=== PATIENT | male | born 1990 | race Caucasian/White ===

== ENCOUNTER 2019-08-26 17:36 | Emergency (ER) | payer SELFPAY ==
[2019-08-26] MEDS ORDERED: LIDOCAINE 1% 20 ML MDV ONE (18:22)
[2019-08-26] MEDS ORDERED: TETANUS & DIPHTHERIA TOX,ADULT 0.5 ML VIAL ONE (18:23)
--- NOTE | 2019-08-26 18:50 | RAD REPORT ---
EXAM DESCRIPTION: RAD -Hand Left 3 View - 08/26/2019 6:38 pm CLINICAL HISTORY: Left hand pain status post injury FINDINGS: No fracture or dislocation is seen. A radiopaque foreign body not seen
--- NOTE | 2019-08-26 20:06 | ER ---
Nurse's Notes [facility] Name: Eulalio Krishnan Age: 28 yrs Sex: Male : 1990 Arrival Date: 08/26/2019 Time: 17:39 Bed 20 Private MD: Diagnosis: Laceration without foreign body of left hand Presentation: 08/25 17:49 Chief complaint: Patient states: Cut L hand with a chainsaw about 45 minutes ago. ca1 Coronavirus screen: The patient has NOT traveled to [place] in the past 14 days. The patient has NOT had contact with known and/or suspected case of Coronavirus. Ebola Screen: Patient negative for fever greater than or equal to 101.5 degrees Fahrenheit, and additional compatible Ebola Virus Disease symptoms Patient denies exposure to infectious person. Patient denies travel to an Ebola-affected area in the 21 days before illness onset. No symptoms or risks identified at this time. Initial Sepsis Screen: Does the patient meet any 2 criteria? No. Patient's initial sepsis screen is negative. Does the patient have a suspected source of infection? No. Patient's initial sepsis screen is negative. Risk Assessment: Do you want to hurt yourself or someone else? Patient reports no desire to harm self or others. Onset of symptoms was August 26, 2019. 17:49 Method Of Arrival: Ambulatory ca1 17:49 Acuity: MIGUEL A 4 ca1 19:13 Complicating Factors: chainsaw cut. mg2 Historical: - Allergies: 17:52 No Known Allergies; ca1 - Home Meds: 17:52 None [Active]; ca1 - PMHx: 17:52 None; ca1 - PSHx: 17:52 None; ca1 - Immunization history:: Adult Immunizations not up to date, Last tetanus immunization: < 5 years ago Flu vaccine is not up to date. - Social history:: Smoking status: Patient reports the use of cigarette tobacco products, smokes one pack cigarettes per day. Screenin:12 Abuse screen: Denies threats or abuse. Denies injuries from another. Nutritional mg2 screening: No deficits noted. Tuberculosis screening: No symptoms or risk factors identified. Fall Risk None identified. Assessment: 19:11 General: Appears in no apparent distress. comfortable, Behavior is calm, cooperative. mg2 Pain: Complains of pain in left hand. Neuro: Level of Consciousness is awake, alert, obeys commands, Oriented to person, place, time, situation. Cardiovascular: Capillary refill < 3 seconds Patient's skin is warm and dry. Respiratory: Airway is patent Respiratory effort is even, unlabored, Respiratory pattern is regular, symmetrical. GI: No signs and/or symptoms were reported involving the gastrointestinal system. : No deficits noted. EENT: No deficits noted. Derm: Wound noted left hand Wound is 2 inches long. Musculoskeletal: Circulation, motion, and sensation intact. Capillary refill < 3 seconds. Injury Description: Laceration. 19:15 Injury Description: Laceration sustained to left hand is clean, 2.6 to 7.5 cm long, not wh bleeding. 19:45 Reassessment: Patient appears in no apparent distress at this time. Patient and/or wh family updated on plan of care and expected duration. Pain level reassessed. Patient is alert, oriented x 3, equal unlabored respirations, skin warm/dry/pink. Md at bedside doing procedure. Vital Signs: 17:49 BP 116 / 74; Pulse 101; Resp 16 S; Temp 98.1(O); Pulse Ox 99% on R/A; Weight 61.23 kg ca1 (R); Height 5 ft. 8 in. (172.72 cm) (R); Pain 6/10; 19:45 BP 126 / 70; Pulse 66; Resp 18; Pulse Ox 99% on R/A; wh 17:49 Body Mass Index 20.53 (61.23 kg, 172.72 cm) ca1 ED Course: 17:39 Patient arrived in ED. mr 17:51 Triage completed. ca1 17:52 Arm band placed on right wrist. Bandage applied. ca1 17:54 Phuc Lewis PA is PHCP. cp 17:54 Mohinder Warren MD is Attending Physician. cp 17:56 Satya Davey, CONSUELO is Primary Nurse. mg2 18:38 XRAY Hand LEFT 3 View In Process Unspecified. EDMS 19:13 Patient has correct armband on for positive identification. Door closed. mg2 19:45 Assist provider with laceration repair on left hand that was between 2.6 to 7.5 cm wh using sutures. Set up tray. Performed by Phuc HICKS Dressed with band aid, spica splint Patient tolerated well. Patient did not have IV access during this emergency room visit. 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 Exp: mg2 07/10/2021. Lot #: [id number]. } Route: IM; Site: right deltoid; 20:23 Follow up: Response: No adverse reaction 19:42 Drug: Lidocaine-Epinephrine -1%: (1:100,000) 10 ml {Note: Administered by Phuc Lewis.} Volume: 20 ml; Route: Infiltration; Outcome: 20:05 Discharge ordered by . espinoza 20:25 Discharged to home ambulatory, with family. 20:25 Condition: stable 20:25 Discharge instructions given to patient, family, Instructed on discharge instructions, follow up and referral plans. medication usage, wound care, Demonstrated understanding of instructions, follow-up care, medications, wound care, Prescriptions given X 2. 20:34 Patient left the ED. Signatures: Dispatcher [employer] EDWV GeorgeZhane mr Phuc Lewis PA PA cp Habalo, Winsy Satya Davey RN RN mg2 Dotty Hutchinson RN RN ca1
--- NOTE | 2019-08-26 20:06 | EDPHYS ---
Physician Documentation [facility] Name: Eulalio Krishnan Age: 28 yrs Sex: Male : 1990 Arrival Date: 08/26/2019 Time: 17:39 Bed 20 Private MD: ED Physician Mohinder Warren HPI: 08/25 18:20 This 28 yrs old Male presents to ER via Ambulatory with complaints of cp Laceration To Hand. 18:20 The patient has a laceration occurred at home, and using chainsaw. The laceration(s) cp is(are) located on the hyperthenar eminence of left hand. Onset: The symptoms/episode began/occurred just prior to arrival. Associated signs and symptoms: Pertinent negatives: heavy bleeding, numbness distal to injury. Historical: - Allergies: 17:52 No Known Allergies; ca1 - Home Meds: 17:52 None [Active]; ca1 - PMHx: 17:52 None; ca1 - PSHx: 17:52 None; ca1 - Immunization history:: Adult Immunizations not up to date, Last tetanus immunization: < 5 years ago Flu vaccine is not up to date. - Social history:: Smoking status: Patient reports the use of cigarette tobacco products, smokes one pack cigarettes per day. ROS: 18:25 Constitutional: Negative for fever, poor PO intake. cp 18:25 Eyes: Negative for injury, pain, redness, and discharge. cp 18:25 ENT: Negative for ear pain, sore throat. 18:25 Cardiovascular: Negative for chest pain. 18:25 Respiratory: Negative for cough, shortness of breath, wheezing. 18:25 Abdomen/GI: Negative for abdominal pain, vomiting, diarrhea, constipation. 18:25 Skin: Positive for laceration(s), of the hyperthenar eminence of left hand. 18:25 Neuro: Negative for numbness, tingling. 18:25 All other systems are negative. Exam: 18:35 Constitutional: The patient appears in no acute distress, alert, awake, well developed, cp well nourished. 18:35 Head/Face: Normocephalic, atraumatic. cp 18:35 Eyes: Periorbital structures: appear normal, Conjunctiva: normal, Lids and lashes: appear normal, bilaterally. 18:35 ENT: External ear(s): are unremarkable, Nose: is normal, Mouth: is normal. 18:35 Chest/axilla: Inspection: normal. 18:35 Cardiovascular: Rate: tachycardic. 18:35 Respiratory: the patient does not display signs of respiratory distress, Respirations: normal. 18:35 Abdomen/GI: Inspection: abdomen appears normal. 18:35 Musculoskeletal/extremity: Extremities: grossly normal except: noted in the hyperthenar eminence of left hand: laceration, ROM: limited active range of motion, in the left hand, Circulation is intact in all extremities. Sensation intact. Vital Signs: 17:49 BP 116 / 74; Pulse 101; Resp 16 S; Temp 98.1(O); Pulse Ox 99% on R/A; Weight 61.23 kg ca1 (R); Height 5 ft. 8 in. (172.72 cm) (R); Pain 6/10; 19:45 BP 126 / 70; Pulse 66; Resp 18; Pulse Ox 99% on R/A; wh 17:49 Body Mass Index 20.53 (61.23 kg, 172.72 cm) ca1 Laceration: 19:51 Wound Repair of 4cm ( 1.6in ) subcutaneous laceration to hyperthenar eminence of left cp hand. Linear shaped.. Distal neuro/vascular/tendon intact. Anesthesia: Wound infiltrated with 5 mls of Lido/Marcaine. Wound prep: Moderate cleansing by nurse. Skin closed with 6 4-0 Prolene using simple sutures and sterile technique. Dressed with Bacitracin, 4x4's. Patient tolerated well. MDM: 17:57 Patient medically screened. cp 18:35 Differential diagnosis: superficial laceration, tendon injury, vascular injury, open cp fracture. 20:04 Data reviewed: vital signs, nurses notes, radiologic studies, plain films. cp 20:04 Test interpretation: by ED physician or midlevel provider: plain radiologic studies, cp xrays left hand negative for fracture. Counseling: I had a detailed discussion with the patient and/or guardian regarding: the historical points, exam findings, and any diagnostic results supporting the discharge/admit diagnosis, radiology results, the need for outpatient follow up, a family practitioner, to return to the emergency department if symptoms worsen or persist or if there are any questions or concerns that arise at home. Response to treatment: the patient's symptoms have markedly improved after treatment, and as a result, I will discharge patient. 08/25 18:15 Order name: XRAY Hand LEFT 3 View; Complete Time: 19:12 cp 08/25 19:13 Interpretation: Report reviewed. 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 Exp: mg2 07/10/2021. Lot #: [id number]. } Route: IM; Site: right deltoid; 20:23 Follow up: Response: No adverse reaction 19:42 Drug: Lidocaine-Epinephrine -1%: (1:100,000) 10 ml {Note: Administered by Phuc Lewis.} Volume: 20 ml; Route: Infiltration; Disposition: 08/26 06:22 Co-signature as Attending Physician, Mohinder Warren MD I agree with the assessment and tw4 plan of care. Disposition: 08/26/19 20:05 Discharged to Home. Impression: Laceration without foreign body of left hand. - Condition is Stable. - Discharge Instructions: Laceration Care, Adult. - Prescriptions for Ibuprofen 800 mg Oral Tablet - take 1 tablet by ORAL route every 8 hours As needed take with food; 30 tablet. Keflex 500 mg Oral Capsule - take 1 capsule by ORAL route every 8 hours for 10 days; 30 capsule. - Medication Reconciliation Form, Thank You Letter, Antibiotic Education, Prescription Opioid Use form. - Follow up: Private Physician; When: 7 - 10 days; Reason: Staple/Suture removal. - Problem is new. - Symptoms have improved. Signatures: Dispatcher [employer] EDKS Phuc Lewis PA PA cp Habalo, Winsy wh Wadley, Terrence, MD MD tw4 Satya Davey RN RN mg2 Acob, Dotty, RN RN ca1 Corrections: (The following items were deleted from the chart) 08/25 20:34 20:05 08/26/2019 20:05 Discharged to Home. Impression: Laceration without foreign body wh of left hand. Condition is Stable. Forms are Medication Reconciliation Form, Thank You Letter, Antibiotic Education, Prescription Opioid Use. Follow up: Private Physician; When: 7 - 10 days; Reason: Staple/Suture removal. Problem is new. Symptoms have improved. cp
== END 2019-08-26 20:34 | disposition home or self-care (01) ==
LOC: ER 17:36
PROC: 0JQK0ZZ Repair Left Hand Subcutaneous Tissue and Fascia, Open Approach (ICD-10-PCS; principal; 2019-08-26)
DX: S61.412A Laceration without foreign body of left hand, initial encounter (principal); W29.3XXA Contact with powered garden and outdoor hand tools and machinery, initial encounter; Y93.9 Activity, unspecified; Y92.009 Unspecified place in unspecified non-institutional (private) residence as the place of occurrence of the external cause; Z23 Encounter for immunization; F17.210 Nicotine dependence, cigarettes, uncomplicated
CPT/HCPCS: 90471; 90714; 99284

== ENCOUNTER 2019-09-07 13:31 | Emergency (ER) | payer SELFPAY ==
--- NOTE | 2019-09-07 13:42 | EDPHYS ---
Physician Documentation [facility] Name: Eulalio Krishnan Age: 28 yrs Sex: Male : 1990 Arrival Date: 09/07/2019 Time: 13:33 Bed 20 Private MD: Phuc Robert HPI: 09/06 13:39 This 28 yrs old Male presents to ER via Unassigned with complaints of Suture jmm Removal. 13:39 The patient has sutures on the left hand. Previous treatment: The patient was initially jmm treated 12 day(s) ago. Sutures/sergio progress: The patient has no c/o's. The wound is well-healing with no redness, swelling, discharge, or dehiscence reported. The patient has not experienced similar symptoms in the past. Historical: - Allergies: 13:43 No Known Allergies; ca1 - Home Meds: 13:43 None [Active]; ca1 - PMHx: 13:43 None; ca1 - PSHx: 13:43 None; ca1 - Immunization history:: Adult Immunizations up to date. - Social history:: Smoking status: Patient reports the use of cigarette tobacco products, smokes one pack cigarettes per day. ROS: 13:39 Constitutional: Negative for fever, chills, and weight loss, Cardiovascular: Negative jmm for chest pain, palpitations, and edema, Respiratory: Negative for shortness of breath, cough, wheezing, and pleuritic chest pain. 13:39 Skin: Positive for laceration(s). 13:39 All other systems are negative. Exam: 13:39 Constitutional: This is a well developed, well nourished patient who is awake, alert, jmm and in no acute distress. Head/Face: atraumatic. Eyes: EOMI, no conjunctival erythema appreciated ENT: Moist Mucus Membranes Neck: Trachea midline, Supple Chest/axilla: Normal chest wall appearance and motion. Cardiovascular: Regular rate and rhythm. No edema appreciated Respiratory: Normal respirations, no respiratory distress appreciated Abdomen/GI: Non distended, soft Back: Normal ROM 13:39 Neuro: Awake and alert, normal gait Psych: Behavior is normal, Mood is normal, Patient is cooperative and pleasant 13:39 Skin: 3 cm well healing laceration noted to the left hand, no erythema or purulent drainage appreciated. Vital Signs: 13:39 BP 117 / 73; Pulse 81; Resp 16 S; Temp 98.4(O); Pulse Ox 100% on R/A; Weight 61.23 kg ca1 (R); Height 5 ft. 8 in. (172.72 cm) (R); Pain 0/10; 13:39 Body Mass Index 20.53 (61.23 kg, 172.72 cm) ca1 Procedures: 13:39 Suture/Staple removal: Removed 6 sutures, from left hand, site appears well healed, mariusz Patient tolerated well. MDM: 13:36 Patient medically screened. [facility] 13:39 Data reviewed: vital signs, nurses notes. Counseling: I had a detailed discussion with mariusz the patient and/or guardian regarding: the historical points, exam findings, and any diagnostic results supporting the discharge/admit diagnosis, the need for outpatient follow up, to return to the emergency department if symptoms worsen or persist or if there are any questions or concerns that arise at home. ED course: Patient given wound infection return precautions. Patient understood and agrees with the plan of care. . Administered Medications: No medications were administered Disposition: 09/07 09:26 Co-signature as Attending Physician, Phuc Hummel MD I agree with the assessment and [facility] plan of care. Disposition: 09/07/19 13:42 Discharged to Home. Impression: Encounter for removal of sutures. - Condition is Stable. - Discharge Instructions: Suture Removal, Care After. - Medication Reconciliation Form, Thank You Letter, Antibiotic Education, Prescription Opioid Use form. - Follow up: Private Physician; Reason: Re-evaluation by your physician. Signatures: Phuc Hummel MD MD cha Mickail, Joel, PA PA jmm Acob, Cheryl RN RN ca1 Corrections: (The following items were deleted from the chart) 09/06 13:49 13:42 09/07/2019 13:42 Discharged to Home. Impression: Encounter for removal of ca1 sutures. Condition is Stable. Forms are Medication Reconciliation Form, Thank You Letter, Antibiotic Education, Prescription Opioid Use. Follow up: Private Physician; Reason: Re-evaluation by your physician. mariusz
--- NOTE | 2019-09-07 13:49 | ER ---
Nurse's Notes [facility] Name: Eulalio Krishnan Age: 28 yrs Sex: Male : 1990 Arrival Date: 09/07/2019 Time: 13:33 Bed 20 Private MD: Diagnosis: Encounter for removal of sutures Presentation: 09/06 13:39 Chief complaint: Patient states: For suture removal on L hand. Suture done on the 3rd ca1 of August. Coronavirus screen: The patient has NOT traveled to a country currently being monitored by the [facility] within the last 14 days. The patient has NOT had contact with any known and/or suspected case of coronavirus. Ebola Screen: Patient negative for fever greater than or equal to 101.5 degrees Fahrenheit, and additional compatible Ebola Virus Disease symptoms Patient denies exposure to infectious person. Patient denies travel to an Ebola-affected area in the 21 days before illness onset. No symptoms or risks identified at this time. Initial Sepsis Screen: Does the patient meet any 2 criteria? No. Patient's initial sepsis screen is negative. Does the patient have a suspected source of infection? No. Patient's initial sepsis screen is negative. Risk Assessment: Do you want to hurt yourself or someone else? Patient reports no desire to harm self or others. Onset of symptoms was September 07, 2019. Transition of care: patient was not received from another setting of care. 13:39 Method Of Arrival: Ambulatory ca1 13:39 Acuity: MIGUEL A 5 ca1 Triage Assessment: 13:43 General: Appears in no apparent distress. comfortable, Behavior is calm, cooperative, ca1 appropriate for age. Pain: Denies pain. Derm: Skin is intact, is healthy with good turgor, Skin is pink, warm \T\ dry. Wound noted left hand Wound is dry, intact and clean. Musculoskeletal: Circulation, motion, and sensation intact. Capillary refill < 3 seconds. Historical: - Allergies: 13:43 No Known Allergies; ca1 - Home Meds: 13:43 None [Active]; ca1 - PMHx: 13:43 None; ca1 - PSHx: 13:43 None; ca1 - Immunization history:: Adult Immunizations up to date. - Social history:: Smoking status: Patient reports the use of cigarette tobacco products, smokes one pack cigarettes per day. Screenin:45 Abuse screen: Denies threats or abuse. Denies injuries from another. Nutritional ca1 screening: No deficits noted. Tuberculosis screening: No symptoms or risk factors identified. Fall Risk None identified. Assessment: 13:45 Reassessment: SEE TRIAGE ASSESSMENT. ca1 Vital Signs: 13:39 BP 117 / 73; Pulse 81; Resp 16 S; Temp 98.4(O); Pulse Ox 100% on R/A; Weight 61.23 kg ca1 (R); Height 5 ft. 8 in. (172.72 cm) (R); Pain 0/10; 13:39 Body Mass Index 20.53 (61.23 kg, 172.72 cm) ca1 ED Course: 13:33 Patient arrived in ED. mr 13:33 Peyman Upton PA is PHCP. mariusz 13:33 Phuc Hummel MD is Attending Physician. [facility] 13:39 Dotty Hutchinson, CONSUELO is Primary Nurse. ca1 13:43 Triage completed. ca1 13:43 Arm band placed on right wrist. ca1 13:45 Patient has correct armband on for positive identification. Bed in low position. Call ca1 light in reach. Side rails up X 1. 13:48 No provider procedures requiring assistance completed. Patient did not have IV access ca1 during this emergency room visit. Administered Medications: No medications were administered Outcome: 13:42 Discharge ordered by . [facility] 13:48 Discharged to home ambulatory, with significant other. ca1 13:48 Condition: stable 13:48 Discharge instructions given to patient, Instructed on discharge instructions, follow up and referral plans. Demonstrated understanding of instructions, follow-up care. 13:49 Patient left the ED. ca1 Signatures: Peyman Upton PA PA jmm Rivera, Mary mr Dotty Hutchinson, RN RN ca1
[2019-09-07 13:55] VITALS: BP 117/73; TEMP 98.4; O2SAT 100
== END 2019-09-07 13:49 | disposition home or self-care (01) ==
LOC: ER 13:31
DX: Z48.02 Encounter for removal of sutures (principal)
CPT/HCPCS: 99281

== ENCOUNTER 2021-03-18 19:38 | Emergency (ER) | payer SELFPAY ==
[2021-03-18] MEDS ORDERED: TETRACAINE HCL 0.5% 4ML OPTH ONE (21:23)
[2021-03-18] MEDS ORDERED: FLUORESCEIN SODIUM 1 MG/WRAP ONE (21:24)
--- NOTE | 2021-03-18 21:39 | EDPHYS ---
Physician Documentation [facility] Name: Eulalio Krishnan Age: 30 yrs Sex: Male : 1990 Arrival Date: 03/18/2021 Time: 19:40 Bed 16 Private MD: ED Physician Jerry Tabor HPI: 03/18 21:00 This 30 yrs old Male presents to ER via Ambulatory with complaints of Foreign cp Body In Eye, Eye Pain, Eye Problem. 21:00 The patient is experiencing foreign body sensation, redness, to the left eye. cp 21:00 Onset: The symptoms/episode began/occurred today. cp 21:00 Duration: the symptoms are continuous. Associated signs and symptoms: Pertinent cp negatives: ear ache, fever, headache, runny nose, drainage from eye. Patient requires glasses and denies recent use of contact lenses. Historical: - Allergies: 19:51 No Known Allergies; ap3 - Home Meds: 19:51 None [Active]; ap3 - PMHx: 19:51 None; ap3 - PSHx: 19:51 wrist; ap3 - Immunization history:: Client reports having NOT received the Covid vaccine. Last tetanus immunization: up to date. - Social history:: Smoking status: Patient reports the use of cigarette tobacco products, smokes one pack cigarettes per day. Patient/guardian denies using alcohol, street drugs. ROS: 21:05 Constitutional: Negative for body aches, chills, fever, poor PO intake. cp 21:05 Eyes: Positive for foreign body sensation, redness, of the left eye, Negative for cp discharge. 21:05 ENT: Negative for drainage from ear(s), ear pain, rhinorrhea, sinus pain, sore throat, difficulty swallowing, difficulty handling secretions. 21:05 Cardiovascular: Negative for chest pain. 21:05 Respiratory: Negative for cough, shortness of breath, wheezing. 21:05 Skin: Negative for rash. 21:05 Neuro: Negative for headache. 21:05 All other systems are negative. Exam: 21:00 Visual Acuity: I have reviewed the nursing documentation. cp 21:20 Constitutional: The patient appears in no acute distress, alert, awake, non-toxic, well cp developed, well nourished. 21:20 Head/Face: Normocephalic, atraumatic. cp 21:20 Eyes: Periorbital structures: appear normal, Pupils: equal, round, and reactive to light and accomodation, Extraocular movements: intact throughout, Conjunctiva: injected, in the left eye, Corneas: abrasion, is not appreciated, foreign body, is not appreciated, a fluorescein strip employed to appreciate the findings, Sclera: no appreciated abnormality, Anterior chamber: hyphema noted, absent, Lids and lashes: appear normal, bilaterally, Visual ac: are intact, Examination of the other eye reveals no obvious gross abnormality. 21:20 ENT: External ear(s): are unremarkable, Nose: is normal, Mouth: Lips: moist, Oral mucosa: moist, Posterior pharynx: Airway: no evidence of obstruction, patent. 21:20 Neck: Lymph nodes: no appreciated lymphadenopathy. 21:20 Chest/axilla: Inspection: normal. 21:20 Cardiovascular: Rate: normal. 21:20 Respiratory: the patient does not display signs of respiratory distress, Respirations: normal. 21:20 Skin: cellulitis, is not appreciated, no rash present. Vital Signs: 19:49 Pulse 65; Resp 17; Temp 98.1; Pulse Ox 100% on R/A; Weight 58.97 kg; Height 5 ft. 8 in. ap3 (172.72 cm); Pain 6/10; 19:49 BP 133 / 93; ap3 21:59 BP 128 / 84; Pulse 60; Resp 18; Temp 98.4; Pulse Ox 100% ; Pain 0/10; sj1 19:49 Body Mass Index 19.77 (58.97 kg, 172.72 cm) ap3 Visual Acuity: 20:54 Left Eye Visual acuity 20/30, Pupil size 3 mm, Normal, Reactive To Accomodation; Right lh3 Eye Visual acuity 20/25, Pupil size 3 mm, Normal, Reactive To Accomodation; Both Eyes Visual acuity 20/20; Without Lenses; MDM: 20:50 Patient medically screened. cp 21:00 Differential diagnosis: Corneal abrasion of left eye. Corneal ulcer of left eye. cp Foreign body in left eye. Chemical conjunctivitis in left eye. Allergic conjunctivitis in left eye. Infectious conjunctivitis in left eye. 21:38 Data reviewed: vital signs, nurses notes. cp 21:38 Counseling: I had a detailed discussion with the patient and/or guardian regarding: the cp historical points, exam findings, and any diagnostic results supporting the discharge/admit diagnosis. Response to treatment: the patient's symptoms have markedly improved after treatment, and as a result, I will discharge patient. 03/18 20:52 Order name: Eye Tray; Complete Time: 21:03 cp 03/18 20:52 Order name: Fluoresene Opth strip; Complete Time: 21:03 cp 03/18 20:52 Order name: Visual Acuity; Complete Time: 20:56 cp Administered Medications: 21:42 Drug: Tetracaine Drops 0.5 % 1 drops Route: Ophthalmic; Site: left eye; sj1 21:54 Drug: Gentamicin Drops 0.3 % 2 drops Route: Ophthalmic; Site: left eye; sj1 Disposition: 21:45 Chart complete. cp Disposition Summary: 03/18/21 21:38 Discharge Ordered Location: Home cp Problem: new cp Symptoms: have improved cp Condition: Stable cp Diagnosis - Other acute conjunctivitis - left eye cp Followup: cp - With: Ed Topete MD - When: 1 - 2 days - Reason: Worsening of condition Discharge Instructions: - Discharge Summary Sheet cp - Bacterial Conjunctivitis, Adult cp Forms: - Medication Reconciliation Form cp - Thank You Letter cp - Antibiotic Education cp - Prescription Opioid Use cp Prescriptions: - Gentamicin 0.3 % Ophthalmic Drops - instill 1 drop by OPHTHALMIC route every 4 hours for 7 days; 1 bottle; Refills: cp 0, Product Selection Permitted Addendum: 03/23/2021 05:31 Co-signature as Attending Physician, Jerry Tabor MD. [facility] Signatures: Phuc Lewis PA PA cp Steffany Alfonso RN RN ap3 Jerry Tabor MD MD [id number] Ghazal Quiñones RN RN sj1
--- NOTE | 2021-03-18 21:39 | ER ---
Nurse's Notes [facility] Name: Eulalio Krishnan Age: 30 yrs Sex: Male : 1990 Arrival Date: 03/18/2021 Time: 19:40 Bed 16 Private MD: Diagnosis: Other acute conjunctivitis-left eye Presentation: 03/18 19:49 Chief complaint: Patient states: he has something in his left eye. he is unsure what it ap3 could be. Coronavirus screen: At this time, the client does not indicate any symptoms associated with coronavirus-19. Ebola Screen: No symptoms or risks identified at this time. Mechanism of Injury: unknown. The patient denies any loss of vision. Initial Sepsis Screen: Does the patient meet any 2 criteria? No. Patient's initial sepsis screen is negative. Does the patient have a suspected source of infection? No. Patient's initial sepsis screen is negative. Risk Assessment: Do you want to hurt yourself or someone else? Patient reports no desire to harm self or others. Onset of symptoms was March 18, 2021. 19:49 Method Of Arrival: Ambulatory ap3 19:49 Acuity: MIGUEL A 4 ap3 Triage Assessment: 19:51 General: Appears in no apparent distress. Behavior is calm, cooperative, appropriate ap3 for age. Pain: Complains of pain in left eye Pain currently is 7 out of 10 on a pain scale. EENT: Eyes patient states there is a foreign body in his left eye. . Neuro: Level of Consciousness is awake, alert, obeys commands, Oriented to person, place, time, situation, Appropriate for age Moves all extremities. Gait is steady, Speech is normal. Cardiovascular: Capillary refill < 3 seconds Patient's skin is warm and dry. Respiratory: Airway is patent Respiratory effort is even, unlabored, Respiratory pattern is regular, symmetrical. Historical: - Allergies: 19:51 No Known Allergies; ap3 - Home Meds: 19:51 None [Active]; ap3 - PMHx: 19:51 None; ap3 - PSHx: 19:51 wrist; ap3 - Immunization history:: Client reports having NOT received the Covid vaccine. Last tetanus immunization: up to date. - Social history:: Smoking status: Patient reports the use of cigarette tobacco products, smokes one pack cigarettes per day. Patient/guardian denies using alcohol, street drugs. Screenin:51 Abuse screen: Denies threats or abuse. Nutritional screening: No deficits noted. ap3 Tuberculosis screening: No symptoms or risk factors identified. Fall Risk None identified. Assessment: 20:39 General: Appears in no apparent distress. Behavior is calm, cooperative, appropriate lh3 for age. Pain: Complains of pain in left eye. EENT: Eyes eye is red, with the naked eye, I did not see anything visibly in eye. 21:55 EENT: Sclera/Cornea are reddened in iris of left eye. sj1 Vital Signs: 19:49 Pulse 65; Resp 17; Temp 98.1; Pulse Ox 100% on R/A; Weight 58.97 kg; Height 5 ft. 8 in. ap3 (172.72 cm); Pain 6/10; 19:49 BP 133 / 93; ap3 21:59 BP 128 / 84; Pulse 60; Resp 18; Temp 98.4; Pulse Ox 100% ; Pain 0/10; sj1 19:49 Body Mass Index 19.77 (58.97 kg, 172.72 cm) ap3 Visual Acuity: 20:54 Left Eye Visual acuity 20/30, Pupil size 3 mm, Normal, Reactive To Accomodation; Right lh3 Eye Visual acuity 20/25, Pupil size 3 mm, Normal, Reactive To Accomodation; Both Eyes Visual acuity 20/20; Without Lenses; ED Course: 19:40 Patient arrived in ED. cf2 19:51 Triage completed. ap3 19:53 Patient has correct armband on for positive identification. ap3 19:53 Arm band placed on left wrist. ap3 20:26 Elisa Garibay, RN is Primary Nurse. lh3 20:34 Phuc Lewis PA is PHCP. cp 20:34 Jerry Tabor MD is Attending Physician. cp 20:39 No provider procedures requiring assistance completed. lh3 21:38 Ed Topete MD is Referral Physician. cp 21:55 Patient did not have IV access during this emergency room visit. sj1 Administered Medications: 21:42 Drug: Tetracaine Drops 0.5 % 1 drops Route: Ophthalmic; Site: left eye; sj1 21:54 Drug: Gentamicin Drops 0.3 % 2 drops Route: Ophthalmic; Site: left eye; sj1 Outcome: 21:38 Discharge ordered by . cp 21:54 Discharged to home sj1 21:54 Condition: stable 21:54 Discharge instructions given to patient, Instructed on discharge instructions, follow up and referral plans. medication usage, Demonstrated understanding of instructions, follow-up care. 21:59 Patient left the ED. sj1 Signatures: Phuc Lewis PA PA cp Prokisch, Amanda RN RN ap3 Carmen Root cf2 Elisa Garibay RN RN 3 Ghazal Quiñones RN RN sj1
[2021-03-18] MEDS ORDERED: GENTAMICIN 0.3% OPTH DROP 5ML ONE (22:12)
[2021-03-18 22:19] VITALS: O2SAT 100
[2021-03-18 22:21] VITALS: BP 128/84; TEMP 98.4
== END 2021-03-18 21:59 | disposition home or self-care (01) ==
LOC: ER 19:38
DX: H10.32 Unspecified acute conjunctivitis, left eye (principal); F17.210 Nicotine dependence, cigarettes, uncomplicated
CPT/HCPCS: 99283